=== PATIENT | female | born 1970 ===

== ENCOUNTER 2018-07-11 09:43 | Emergency (ER) | payer OTHER ==
[2018-07-11 09:47] VITALS: BP 134/82; PULSE 76; RESP 18; TEMP 98.4; O2SAT 98
--- NOTE | 2018-07-11 10:11 | ED PDOC ---
HPI: General Adult Time Seen by Provider: 07/11/18 09:50 Chief Complaint (Nursing): ENT Problem History Per: Patient Onset/Duration Of Symptoms: Hrs (5) Current Symptoms Are (Timing): Still Present Severity: Moderate Additional Complaint(s): Sharp right sided ear pain since 5AM today. Denies fever. assoc with decreased hearing. Denies discharge. Past Medical History Vital Signs: Last Vital Signs Temp 98.4 F 07/11/18 09:45 Pulse 76 07/11/18 09:45 Resp 18 07/11/18 09:45 BP 134/82 07/11/18 09:45 Pulse Ox 98 07/11/18 09:45 - Medical History PMH: No Chronic Diseases - Family History Family History: States: Unknown Family Hx - Home Medications Home Medications: Ambulatory Orders Medication Instructions Recorded Ibuprofen 600 mg PO Q6H PRN #15 tab 01/05/15 Oxycodone HCl/Acetaminophen 1 tab PO Q6 PRN #10 tab 01/05/15 [Percocet 325 mg-5 mg] Ibuprofen [Motrin] 600 mg PO Q8 PRN #6 tab 03/14/15 Amoxicillin/Potassium Clav 1 tab PO TID #30 tab 07/11/18 [Augmentin 500 mg-125 mg] Naproxen [Naprosyn] 500 mg PO Q12H #20 tab 07/11/18 Neomycin/Polymyxin/Hydrocortis 3 drop OT TID #1 bottle 07/11/18 [Cortisporin Otic Susp] - Allergies Allergies/Adverse Reactions: Allergies Allergy/AdvReac Type Severity Reaction Status Date / Time No Known Allergies Allergy Verified 07/11/18 09:49 Review of Systems Constitutional: Negative for: Fever ENT: Positive for: Ear Pain. Negative for: Ear Discharge, Throat Pain Physical Exam - Physical Exam Appears: Positive for: Non-toxic, No Acute Distress Skin: Positive for: Normal Color, Warm, DRY ENT: Positive for: Other (Right canal erythemtous and swollen. TM not visible due to swelling) - ECG O2 Sat by Pulse Oximetry: 98 Disposition - Clinical Impression Clinical Impression: Otitis externa - Patient ED Disposition Is Patient to be Admitted: No Counseled Patient/Family Regarding: Diagnosis, Need For Followup, Rx Given - Disposition Referrals: Seymour Keys MD [Staff Provider] - Disposition: Routine/Home Disposition Time: 10:12 Condition: FAIR Prescriptions: Amoxicillin/Potassium Clav [Augmentin 500 mg-125 mg] 1 tab PO TID #30 tab Naproxen [Naprosyn] 500 mg PO Q12H #20 tab Neomycin/Polymyxin/Hydrocortis [Cortisporin Otic Susp] 3 drop OT TID #1 bottle Instructions: Outer Ear Infection Print Language: BELARUSIAN
== END 2018-07-11 10:31 | disposition home or self-care (01) ==
LOC: H.ER 09:43
DX: H60.91 Unspecified otitis externa, right ear (principal)